=== PATIENT | male | born 1990 | race Caucasian/White ===

== ENCOUNTER 2017-10-20 12:41 | Emergency (ER) | payer MEDICAID ==
[~2017-10-20] VITALS: Ht 175.3 cm; Wt 62.5 kg
[~2017-10-20 12:41] MED LIST: CLOT15CR73 TP; IBUP-1573 PO; METH500T PO; NO HOME MEDS
[2017-10-20 13:12] VITALS: BP 168/86
== END 2017-10-20 13:45 | disposition home or self-care (01) ==
LOC: ER 12:41
DX: Z00.00 Encounter for general adult medical examination without abnormal findings (principal); Z59.0 Homelessness; F12.90 Cannabis use, unspecified, uncomplicated
CPT/HCPCS: 99281

== ENCOUNTER 2018-02-23 20:54 | Emergency (ER) | payer MEDICAID ==
[~2018-02-23] VITALS: Ht 172.7 cm; Wt 61.4 kg
[2018-02-23 21:18] VITALS: BP 135/84
[2018-02-24] MEDS ORDERED: SULF1TAB49 PO (18:56)
== END 2018-02-23 23:58 | disposition left against medical advice (07) ==
LOC: ER 20:54
DX: L02.416 Cutaneous abscess of left lower limb (principal); Z53.21 Procedure and treatment not carried out due to patient leaving prior to being seen by health care provider

== ENCOUNTER 2023-04-27 13:45 | Emergency (ER) | payer MEDICAID, OTHER ==
[~2023-04-27] VITALS: Ht 175.3 cm; Wt 57.6 kg
[2023-04-27 13:48] VITALS: BP 119/76; PULSE 104; RESP 16; TEMP 99.1; O2SAT 98
[2023-04-27] MEDS ORDERED: PERM60CR19 TOP (14:49)
[2023-04-27] MEDS ORDERED: CEPH-585 PO (14:49)
== END 2023-04-27 15:03 | disposition home or self-care (01) ==
LOC: ER 13:46
DX: S30.861A Insect bite (nonvenomous) of abdominal wall, initial encounter (principal); W57.XXXA Bitten or stung by nonvenomous insect and other nonvenomous arthropods, initial encounter; Y93.89 Activity, other specified; Y92.89 Other specified places as the place of occurrence of the external cause; Y99.8 Other external cause status
CPT/HCPCS: 99283